=== PATIENT | female | born 1995 | race Asian ===

== ENCOUNTER 2017-07-13 00:56 | Emergency (ER) | payer OTHER ==
[2017-07-13 01:48] VITALS: BP 112/74; TEMP 98.8; BMI 17.6
--- NOTE | 2017-07-13 02:14 | PDOC ---
Attending Attestation - HPI HPI: 07/13/17 02:23 The patient is a 22 year old female, with a significant past medical history of UTI (last UTI approx. 5 years ago), who presents to the emergency department with, approx. 1-2 days of dysuria and nausea without vomiting. Patient denies chance of . She denies recent fevers, chills, headache or dizziness. She denies recent, vomit, diarrhea or constipation. She denies hematuria. She denies recent chest pain or shortness of breath. Allergies: NKA Documentation prepared by Calin Coelho, acting as medical chemist for Vincent Silva DO. <Calin Coelho - Last Filed: 07/13/17 02:24> - Resident Resident Name: Nicola Victor - ED Attending Attestation I have performed the following: I have examined & evaluated the patient, The case was reviewed & discussed with the resident, I agree w/resident's findings & plan, Exceptions are as noted - Physicial Exam PE: 07/13/17 02:58 *Physical Exam General Appearance: Yes: Appropriately Dressed. No: Apparent Distress, Intoxicated HEENT: positive: EOMI, DEIDRA, Normal ENT Inspection, Normal Voice, TMs Normal, Pharynx Normal. negative: Pale Conjunctivae, Photophobia, Scleral Icterus (R), Scleral Icterus (L) Neck: positive: Trachea midline, Normal Thyroid, Supple. negative: Tender, Rigid, Carotid bruit, Stridor, Lymphadenopathy (R), Lymphadenopathy (L), Thyromegaly Respiratory/Chest: positive: Lungs Clear, Normal Breath Sounds. negative: Chest Tender, Respiratory Distress, Accessory Muscle Use, Labored Respiration, RES, Crackles, Rales, Rhonchi, Stridor, Wheezing, Dullness Cardiovascular: positive: Regular Rhythm, Regular Rate, S1, S2. negative: Edema , JVD, Murmur, Bradycardia, Tachycardia Vascular Pulses: Dorsalis-Pedis (R): 2+, Doralis-Pedis (L): 2+ Gastrointestinal/Abdominal: positive: Normal Bowel Sounds, Flat, Soft. negative : Tender, Organomegaly, Pulsatile Mass, Increased Bowel Sounds, Decreased BS, Distended, Guarding, Rebound, Hernia, Hepatomegaly, Spleenomegaly Lymphatic: negative: Adenopathy, Tenderness Musculoskeletal: positive: Normal Inspection. negative: CVA Tenderness, Decreased Range of Motion Extremity: positive: Normal Capillary Refill, Normal Inspection, Normal Range of Motion, Pelvis Stable. negative: Tender, Pedal Edema, Swelling, Erythema Integumentary: positive: Normal Color, Dry, Warm. negative: Cyanotic, Erythema , Jaundice, Rash Neurologic: positive: guest relations receptionist II-XII NML intact, Fully Oriented, Alert, Normal Mood/ Affect, Motor Strength 5/5. negative: EOM Palsy, Facial Droop, Sensory Deficit - Medical Decision Making 07/13/17 19:58 Pt treated and released <Vincent Silva - Last Filed: 07/13/17 19:58>
[2017-07-13 02:27] LABS: URINE APPEARANCE CLOUDY; URINE BILIRUBIN NEGATIVE (NEGATIVE); URINE BLOOD 3+ (NEGATIVE); URINE COLOR LTYELLOW; URINE GLUCOSE (UA) NEGATIVE (NEGATIVE); URINE KETONE NEGATIVE (NEGATIVE); URINE LEUK ESTERASE 3+ (NEGATIVE); URINE NITRITE NEGATIVE (NEGATIVE); URINE PROTEIN 1+ (NEGATIVE); URINE UROBILINOGEN NEGATIVE mg/dL (0.2-1.0)
[2017-07-13 02:32] LABS: URINE BACTERIA RARE /hpf (NONE SEEN)
[2017-07-13] MEDS ORDERED: CEPHALEXIN MONOHYDRATE 500 MG CAPSULE (UD) PO ONE (02:57)
[2017-07-13] MEDS ORDERED: CEPHALEXIN MONOHYDRATE 250 MG CAPSULE (FP) ONE (03:00)
--- NOTE | 2017-07-13 03:05 | PDOC ---
History of Present Illness - General Chief Complaint: Urinary Problem Stated Complaint: URINATION PROBLEM Time Seen by Provider: 07/13/17 01:57 History Source: Patient Exam Limitations: No Limitations - History of Present Illness Initial Comments: 07/13/17 03:00 Patient is a 22F with no significant medical history here today complaining of dysuria for the past day with associated suprapubic pain. She denies fevers, chills, vomiting, back pain and flank pain. LMP was 06/14/17. Denies pelvic pain , vaginal discharge, and abnormal vaginal bleeding. She states that she had a UTI about 5 years ago and states this feels like her prior UTI. Past History - Past Medical History Allergies/Adverse Reactions: Allergies Allergy/AdvReac Type Severity Reaction Status Date / Time No Known Allergies Allergy Verified 07/13/17 01:41 Home Medications: Ambulatory Orders Cephalexin [Keflex] 500 mg PO BID #14 capsule 07/13/17 - Suicide/Smoking/Psychosocial Hx Smoking History: Never smoked Have you smoked in the past 12 months: No Information on smoking cessation initiated: No Hx Alcohol Use: No Drug/Substance Use Hx: No Review of Systems - Review of Systems Comments:: 07/13/17 03:04 GENERAL/CONSTITUTIONAL: No fever or chills. No weakness. CARDIOVASCULAR: No chest pain or shortness of breath RESPIRATORY: No cough, wheezing, or hemoptysis. GASTROINTESTINAL: Positive for questionable nausea. Negative for vomiting, diarrhea or constipation. GENITOURINARY: No dysuria, frequency, or change in urination. MUSCULOSKELETAL: No joint or muscle swelling or pain. No neck or back pain. SKIN: No rash NEUROLOGIC: No headache, vertigo, loss of consciousness, or change in strength/ sensation. ENDOCRINE: No increased thirst. No abnormal weight change ALLERGIC/IMMUNOLOGIC: No hives or skin allergy. *Physical Exam - Vital Signs Last Vital Signs Temp Pulse Resp BP Pulse Ox 98.8 F 115 H 12 112/74 100 07/13/17 01:41 07/13/17 01:41 07/13/17 01:41 07/13/17 01:41 07/13/17 01:41 - Physical Exam Comments: 07/13/17 03:05 GENERAL: Awake, alert, and fully oriented, in no acute distress HEAD: No signs of trauma, normocephalic, atraumatic EYES: PERRLA, EOMI, sclera anicteric, conjunctiva clear ENT: Auricles normal inspection, hearing grossly normal, nares patent, oropharynx clear without exudates. Moist mucosa LUNGS: No distress, speaks full sentences, clear to auscultation bilaterally HEART: Regular rate and rhythm, normal S1 and S2, no murmurs, rubs or gallops, peripheral pulses normal and equal bilaterally. ABDOMEN: Positive for suprapubic tenderness. No guarding, no rebound. No masses EXTREMITIES: Normal inspection, Normal range of motion, no edema. No clubbing or cyanosis. NEUROLOGICAL: Cranial nerves II through XII grossly intact. Normal speech, normal gait, no focal sensorimotor deficits SKIN: Warm, Dry, normal turgor, no rashes or lesions noted. ED Treatment Course - ADDITIONAL ORDERS Additional order review: Laboratory Results 07/13/17 07/13/17 02:07 02:07 Urine Color Ltyellow Urine Appearance Cloudy Urine pH 5.0 Ur Specific Jackson 1.011 Urine Protein 1+ H Urine Glucose (UA) Negative Urine Ketones Negative Urine Blood 3+ H Urine Nitrite Negative Urine Bilirubin Negative Urine Urobilinogen Negative Ur Leukocyte Esterase 3+ H Urine HCG, Qual Negative Medical Decision Making - Medical Decision Making 07/13/17 03:05 Patient is 22F with dysuria. Vital signs notable for tachycardia. Patient reports being very nervous with doctors and hospitals. Looks very well. Will evaluate with ua, uc, upreg. No need for blood work at this time. UA positive for 3+ LE. With suprapubic tenderness, will treat with keflex. HR 99 on reassessment. PCP follow up recommended, patient refused referral. Antibiotic prescription sent to pharmacy with first dose given in ED. *DC/Admit/Observation/Transfer Diagnosis at time of Disposition: UTI (urinary tract infection) - Discharge Dispostion Disposition: HOME Condition at time of disposition: Good - Prescriptions Prescriptions: Cephalexin [Keflex] 500 mg PO BID #14 capsule - Referrals Referrals: Chato Katz MD [Staff Physician] - - Patient Instructions Printed Discharge Instructions: DI for Urinary Tract Infection (UTI) Additional Instructions: Please return if you have any new, worsening or concerning symptoms. Please follow up with a primary care physician. - Post Discharge Activity
[2017-07-13 03:08] VITALS: PULSE 99
--- NOTE | 2017-07-16 08:04 | PDOC ---
Patient Follow-up (Call Back) - Post ED Follow - Up Condition at time of discharge: Good Disposition at time of original discharge: HOME Reason for Call Back: Abnwl. Microbiology (ecoli on ux, resistant to keflex which pt is on sen to bactrim, macrobid and levaquin Called pt, a woman picked up and states pt is not there, then hangs up on me Will leave transportation maintenance worker back list for subsequent attempts)
== END 2017-07-13 03:16 | disposition home or self-care (01) ==
LOC: JER 00:56
DX: N39.0 Urinary tract infection, site not specified (principal)
CPT/HCPCS: 81003; 81015; 84703; 87086; 87186; 99281-25